=== PATIENT | male | born 1950 | race African-American/Black ===

== ENCOUNTER 2022-09-23 17:18 | Emergency (ER) | payer MEDICARE ==
[~2022-09-23] VITALS: Ht 188 cm; Wt 75.0 kg
[2022-09-23 19:15] VITALS: BP 140/98
[2022-09-23] MEDS ORDERED: IBUPROFEN 400MG TABLET PO ONE (19:15)
[2022-09-23] MEDS ORDERED: ACETAMINOPHEN 325MG TABLET PO ONE (19:15)
[2022-09-23] MEDS ORDERED: ACET-2708 MT (19:58)
== END 2022-09-23 20:10 | disposition home or self-care (01) ==
LOC: ER 17:18
DX: M25.512 Pain in left shoulder (principal); M25.511 Pain in right shoulder; M79.672 Pain in left foot; Y93.89 Activity, other specified; Y92.89 Other specified places as the place of occurrence of the external cause; Y99.8 Other external cause status
CPT/HCPCS: 73030; 73630; 99283

== ENCOUNTER 2022-10-17 19:15 | Emergency (ER) | payer MEDICARE ==
[~2022-10-17] VITALS: Ht 185.4 cm; Wt 92.0 kg
[~2022-10-17 19:15] MED LIST: ACET-2708 MT
[2022-10-17 19:24] VITALS: O2SAT 100
[2022-10-17 20:02] LABS: BASOPHILS % 0.5 % (0.0-2.0); EOSINOPHILS % 3.7 % (0.0-5.0); LYMPHOCYTES % 40.1 % (20.0-50.0); MEAN CORPUSCULAR HEMOGLOBIN 30.1 pg (28.0-32.0); MEAN CORPUSCULAR VOLUME 88.5 fL (80.0-94.0); MEAN PLATELET VOLUME 7.5 fl (7.4-10.4); MONOCYTES % 8.8 % (2.0-8.0); NEUTROPHILS % 46.9 % (40.0-76.0); PLATELET 213 x1000/uL (130-400); RED BLOOD CELL COUNT 4.64 mill/uL (4.7-6.1); RED CELL DISTRIBUTION WIDTH 14.1 % (11.6-14.6)
[2022-10-17 20:07] LABS: CHLORIDE 107 mEq/L (98-107)
[2022-10-18 01:05] VITALS: BP 122/76; PULSE 68; RESP 12; TEMP 97.9
== END 2022-10-18 02:18 | disposition home or self-care (01) ==
LOC: ER 19:15
DX: R07.89 Other chest pain (principal); Z68.26 Body mass index [BMI] 26.0-26.9, adult
CPT/HCPCS: 36415; 71045; 80053; 84484; 85025; 93005; 99285